=== PATIENT | female | born 2000 | race Caucasian/White ===

== ENCOUNTER 2021-10-10 13:03 | Emergency (ER) | payer MEDICAID ==
[~2021-10-10] VITALS: Ht 167.6 cm; Wt 68.0 kg
[2021-10-10 13:53] VITALS: BP 133/86
--- NOTE | 2021-10-10 14:02 | NUR ---
Urine cloudy- specimen sent to lab
[2021-10-10] MEDS ORDERED: CEPH500C2 PO (14:18)
--- NOTE | 2021-10-10 14:23 | NUR ---
Patient discharged to home in stable condition. Written and verbal after care instructions given. Patient verbalizes understanding of instruction.
[2021-10-10 14:48] LABS: BILIRUBIN,URINE SMALL (NEGATIVE); COLOR,URINE YELLOW (YELLOW); LEUKOCYTE ESTERASE ,URINE MODERATE (NEGATIVE); NITRITE, URINE NEGATIVE (NEGATIVE); PROTEIN,URINE 100 mg/dl (NEGATIVE); UGLUCOSE NEGATIVE (NEGATIVE)
[2021-10-10 15:46] LABS: BACTERIA,URINE MANY /HPF (None Seen); RBC,URINE 21-50 /HPF (0-2); SQUAMOUS EPITHELIAL CELL,UR Few /HPF (None Seen); WBC,URINE TOO NUMEROUS TO COUN /HPF (0-3)
== END 2021-10-10 14:24 | disposition home or self-care (01) ==
LOC: ER 13:06
DX: N39.0 Urinary tract infection, site not specified (principal); J45.909 Unspecified asthma, uncomplicated
CPT/HCPCS: 81001; 84703-TC; 87086-TC; 87186-TC